=== PATIENT | male | born 1990 | race Caucasian/White ===

== ENCOUNTER → 2022-09-17 | Outpatient (CLI) | payer OTHER | LOC: M RAD 16:28 | PROVIDERS: ATTEND Physician Assistant | DX: R22.32 Localized swelling, mass and lump, left upper limb (principal) ==

== ENCOUNTER 2024-12-29 16:17 | Emergency (ER) | payer OTHER ==
[~2024-12-29] VITALS: Ht 190.5 cm; Wt 90.1 kg
[2024-12-29 18:45] VITALS: BP 131/72; TEMP 97.4; O2SAT 98
[2024-12-29] MEDS ORDERED: CEPH500C PO (18:48)
[2024-12-29] MEDS: CEPHALEXIN 500 MG CAP PO ONE (18:49)
== END 2024-12-29 19:02 | disposition home or self-care (01) ==
LOC: M ED 16:17
DX: S41.102A Unspecified open wound of left upper arm, initial encounter (principal); X58.XXXA Exposure to other specified factors, initial encounter; Y92.9 Unspecified place or not applicable; Y93.9 Activity, unspecified; Y99.9 Unspecified external cause status